=== PATIENT | male | born 1975 | race Caucasian/White ===

== ENCOUNTER 2016-09-08 12:32 | Emergency (ER) | payer MEDICAID ==
[2016-09-08] MEDS ORDERED: KETOROLAC TROMETHAMINE 60 MG/2 ML VIAL IM ONE ×2 (13:40→13:49)
--- NOTE | 2016-09-08 13:47 | ERNOTE ---
Back Pain ER HPI Presenting Symptoms: injury/pain to back Time Seen by Provider: 09/08/16 13:25 Source: patient Exam Limitations: no limitations Immunizations: IMMUNIZATION HX Immunizations Up to Date Yes History of Influenza Vaccine No Hx Pneumococcal Vaccination No Allergies/Adverse Reactions: Allergies No Known Allergies Allergy (Verified 09/08/16 12:51) Home Medications: HOME MEDICATIONS Cyclobenzaprine HCl [Flexeril] 10 mg PO TID PRN #30 tab 09/08/16 [Last Taken Unknown] Ibuprofen [Motrin] 800 mg PO TID PRN #60 tab 09/08/16 [Last Taken Unknown] Narrative: Patient was pushing hard against a tree to push it over when he started to have a sudden electric pain in his neck radiating up to his head and down to his lower back. Since then he has had pain in his right posterior neck, with decreased range of motion and pain down to his shoulder blade Date (Duration): 09/06/16 Time (Timing): 10:00 Timing: Reports: constant Quality/Severity: Reports: severe, burning Modifying Factors - (Worsens): Reports: movement to right Associated Symptoms: Denies: fever/chills, nausea/vomiting, numbess/weakness in legs Prior Treament: Denies: recently seen, similar symptoms before Review of Systems - Review of Systems Constitutional: Absent: recent illness, fever ENT: Absent: nose congestion, nasal drainage Respiratory: Absent: shortness of breath, cough Cardiology: Absent: chest pain Gastrointestinal/Abdominal: Absent: nausea, vomiting, abdominal pain Musculoskeletal: Present: See HPI, muscle pain Neurological: Absent: weakness, numbness - Patient's Past Medical History Patient History - Medical: No pertinent hx Patient History - Cardiac/Respiratory: No pertinent hx Patient History - Cancer: No Hx of Cancer Patient History - Surgical Procedures: No surgical history - Social History Living Situations: home Smoking Status: Current every day smoker Cigarettes Packs Per Day: 0.5 Have you smoked in the past 12 months: Yes Alcohol Use: none Drug Use: none Physical Exam - Physical Exam General Appearance: Present: wd/wn, alert, mild distress, anxious Eye Exam: Normal inspection: bilateral Neck: Present: normal inspection, other - tender right paraspinal muscles, down to shoulder blade and trapezius. Absent: tender posterior midline Respiratory: Present: no respiratory distress, normal breath sounds, lungs clear Cardiovascular/Chest: Present: regular rate, rhythm Gastrointestinal/Abdominal: Present: nondistended Back Exam: Present: normal inspection, no vertebral tenderness Neurological Exam: Present: alert, oriented, normal mood/affect, no motor/ sensory deficits DTR: N=norm/NB=norm/brisk/A=abs/DD=dull/dimin/HC=hyperactive: Bicep (R): Normal , Bicep (L): Normal Skin Exam: Present: normal color, warm/dry ED Progress - Vital Signs Patient's Vital Signs:: I have reviewed the patient's vital signs. Vital Signs: Vital Signs 09/08/16 12:43 Temperature 36.3 C L Pulse Rate 109 H Respiratory 16 Rate Blood Pressure 145/101 O2 Sat by Pulse 109 H Oximetry - Progress/Reassessment Chief Complaint: Neck Pain/Injury Departure Clinical Impression: Cervical radiculopathy - Departure Disposition: Home self-care Condition: Good Instructions: Cervical Radiculopathy, [id number] Additional Instructions: try to put heat on the sore muscles if you don't get better over the next week follow up with your doctor Referrals: Hilario Mao MD [Staff Physician] - Prescriptions: Cyclobenzaprine HCl [Flexeril] 10 mg PO TID PRN #30 tab PRN Reason: MUSCLE SPASMS Ibuprofen [Motrin] 800 mg PO TID PRN #60 tab PRN Reason: Pain
[2016-09-08 14:14] VITALS: BP 139/73
== END 2016-09-08 14:13 | disposition home or self-care (01) ==
LOC: ER 12:32
DX: M54.12 Radiculopathy, cervical region (principal); F17.210 Nicotine dependence, cigarettes, uncomplicated

== ENCOUNTER 2016-09-11 10:42 | Emergency (ER) | payer MEDICAID ==
[2016-09-11 10:59] VITALS: BP 151/109
[2016-09-11] MEDS ORDERED: KETOROLAC TROMETHAMINE 60 MG/2 ML VIAL IM ONE ×2 (11:18→11:26)
--- NOTE | 2016-09-11 11:46 | ERNOTE ---
Head Injury HPI - Narrative Date of Service: 09/11/16 - General Injury to: other - right trapezius muscle Time Seen by Provider: 09/11/16 11:15 Source: patient Exam Limitations: no limitations - Immun/Allergies/Home Medications Immunization: IMMUNIZATION HX Immunizations Up to Date Yes History of Influenza Vaccine No Hx Pneumococcal Vaccination No Allergies/Adverse Reactions: Allergies Allergy/AdvReac Type Severity Reaction Status Date / Time tramadol AdvReac Nausea Verified 09/11/16 11:00 Home Medications: HOME MEDICATIONS Lidocaine [Lidoderm 5%] 1 patch TP DAILY PRN #30 patch 09/11/16 [Last Taken Unknown] Naproxen [Naprosyn] 500 mg PO BID PRN #60 tab 09/11/16 [Last Taken Unknown] Tizanidine HCl 4 mg PO TID #30 tablet 09/11/16 [Last Taken Unknown] - History of Present Illness Narrative: Pt presents to ER with c/o neck pain and right upper shoulder pain. Pt states that this started on Thursday when cutting down trees. Pt put a cut in the tree and then stood by the tree and tried to push the tree over. Pt states then he felt like a "sock wave went from his head to his right side of upper back. Pt states he felt like he could feel "spiderwebs in his head" Pt further states that he initially had numbness and tingling from neck to right upper back but that has gone away. Pt states he has a difficult time moving right arm. Pt denies any spinal cord pain or injury. Occurred: other - 09/06/16 Severity: severe - Pt states the pain in right trapezius muscle is severe and has decreased range of motion Loss of Consciousness: Denies: no loss of consciousness Associated Symptoms: Reports: neck pain. Denies: cough, shortness of breath, fever/chills, diaphoresis, headaches, nausea, vomiting Review of Systems - Review of Systems Constitutional: Present: weakness - right arm . Absent: recent illness, fever, chills, diaphoresis EYE: Present: no symptoms reported. Absent: eye pain, eye discharge, blurred vision, double vision, vision changes ENT: Present: no symptoms reported. Absent: ear pain, ear discharge, nose pain , nose congestion, nasal drainage, sore throat, throat swelling Respiratory: Present: no symptoms reported. Absent: shortness of breath, cough , wheezing Cardiology: Present: no symptoms reported. Absent: chest pain, palpitations Gastrointestinal/Abdominal: Present: no symptoms reported. Absent: nausea, vomiting, diarrhea, constipation Genitourinary: Present: no symptoms reported. Absent: pain Musculoskeletal: Present: back pain - right upper back pain, muscle pain - right trapezius muscle pain , muscle stiffness, neck pain, joint pain Skin: Present: no symptoms reported. Absent: rash, change in color Neurological: Present: anxiety, numbness - had numbness and tingling when on but has gone away now, tingling - had tingling on 09/06/16 but has gone away. Absent: headache, dizziness/light-headedness, weakness Endocrine: Present: no symptoms reported. Absent: excessive sweating, flushing , intolerance to heat, intolerance to cold Hematologic/Lymphatic: Present: no symptoms reported. Absent: easy bruising, easy bleeding Psych: Present: no symptoms reported. Absent: anxiety, depressed - Patient's Past Medical History Patient History - Medical: No pertinent hx Patient History - Cardiac/Respiratory: No pertinent hx Patient History - Cancer: No Hx of Cancer Patient History - Surgical Procedures: No surgical history Patient History - Other: None - Social History Living Situations: home Smoking Status: Current every day smoker Have you smoked in the past 12 months: Yes Alcohol Use: none Drug Use: none - Immunizations Immunizations Up to Date: Yes Hx Pneumococcal Vaccination: No History of Influenza Vaccine: No Physical Exam - Physical Exam General Appearance: Present: wd/wn, alert, moderate distress. Absent: no apparent distress, severe distress, anxious Eye Exam: Normal inspection: bilateral, PERRL: bilateral, EOMI: bilateral, Abnormal EOM: bilateral, Abnormal pupil: bilateral Ears, Nose, Throat: Present: normal ENT inspection, hearing grossly normal, normal pharynx. Absent: nasal congestion, sinus pain/drainage Neck: Present: limited range of motion - unable to move head to the right side. , tender lateral - tender to the right side Respiratory: Present: no respiratory distress, normal breath sounds, no accessory muscle use, chest nontender, lungs clear. Absent: respiratory distress, accessory muscle use, decreased breath sounds, crackles, wheezing Cardiovascular/Chest: Present: regular rate, rhythm, no murmur, normal peripheral pulses Gastrointestinal/Abdominal: Present: normal bowel sounds, nontender, nondistended, soft, no organomegaly. Absent: tenderness, distended, guarding Back Exam: Present: decreased range of motion - decreased range of motion to right arm with abduction and adduction. Pt is unable to move neck to the right side. . Absent: no CVA tenderness Extremity Exam: Present: no edema, decreased range of motion - decreased range of motion to the right arm. Pt is unable to abduct and adduct right arm. , other - Can't push right arm against resistance. . Absent: non-tender, normal range of motion Neurological Exam: Present: alert, oriented, normal mood/affect, no motor/ sensory deficits, retention specialist II-XII nml as tested, normal cerebellar test. Absent: facial droop, motor weakness Skin Exam: Present: normal color, warm/dry. Absent: diaphoresis, cyanosis, jaundice, skin rash Lymphatic Exam: Present: no adenopathy ED Progress - Date and Time Seen: Date and Time: 09/11/16 11:50 Reveiwed previous nvisit and feel that this could be trapezius tear. - Results and Orders Patient's Lab Results:: I have reviewed the patient's lab results. - Vital Signs Patient's Vital Signs:: I have reviewed the patient's vital signs. Vital Signs: Vital Signs 09/11/16 10:56 Pulse Rate 100 Respiratory 14 Rate Blood Pressure 151/109 O2 Sat by Pulse 100 Oximetry - Progress/Reassessment Chief Complaint: Neck Pain/Injury Departure Clinical Impression: Strain of right trapezius muscle Qualifiers: Encounter type: initial encounter Qualified Code(s): S46.811A - Strain of other muscles, fascia and tendons at shoulder and upper arm level, right arm, initial encounter - Departure Disposition: Home self-care Condition: Good Instructions: Shoulder Sprain, Suprascapular Nerve Entrapment With Rehab- [facility] Additional Instructions: Please make appointment to see orthopedics after leaving here first available to be determined by orthopedist. Referrals: [Primary Care Provider] - Obie Dominguez MD [Staff Physician] - Prescriptions: Lidocaine [Lidoderm 5%] 1 patch TP DAILY PRN #30 patch PRN Reason: Pain Naproxen [Naprosyn] 500 mg PO BID PRN #60 tab PRN Reason: Pain Tizanidine HCl 4 mg PO TID #30 tablet
== END 2016-09-11 12:01 | disposition home or self-care (01) ==
LOC: ER 10:42
DX: S46.811A Strain of other muscles, fascia and tendons at shoulder and upper arm level, right arm, initial encounter (principal); F17.210 Nicotine dependence, cigarettes, uncomplicated; X50.0XXA Overexertion from strenuous movement or load, initial encounter; Y93.H9 Activity, other involving exterior property and land maintenance, building and construction